=== PATIENT | male | born 1970 | race Caucasian/White ===

== ENCOUNTER 2023-08-23 00:23 | Emergency (ER) | payer SELFPAY ==
[~2023-08-23] VITALS: Ht 160 cm; Wt 72.0 kg
[2023-08-23 00:35] VITALS: O2SAT 100
[2023-08-23 03:02] LABS: BASOPHILS % 0.4 % (0.0-2.0); EOSINOPHILS % 0.1 % (0.0-5.0); HEMATOCRIT. 47.4 % (42.0-52.0); HEMOGLOBIN. 16.3 g/dL (14.0-18.0); LYMPHOCYTES % 9.1 % (20.0-50.0); MEAN CORPUSCULAR HEMOGLOBIN 32.2 pg (28.0-32.0); MEAN CORPUSCULAR HGB CONC 34.4 g/dL (31.0-37.0); MEAN CORPUSCULAR VOLUME 93.6 fL (80.0-94.0); MEAN PLATELET VOLUME 9.8 fl (7.4-10.4); MONOCYTES % 4.2 % (2.0-8.0); NEUTROPHILS % 86.2 % (40.0-76.0); PLATELET 179 x1000/uL (130-400); RED BLOOD CELL COUNT 5.07 mill/uL (4.7-6.1); RED CELL DISTRIBUTION WIDTH 12.7 % (11.6-14.6)
[2023-08-23 03:16] LABS: ALANINE AMINOTRANSFERASE 228 IU/L (10-49); ALBUMIN 4.3 g/dL (3.2-4.8); ASPARTATE AMINOTRANSFERASE 133 IU/L (<34); BILIRUBIN TOTAL 0.9 mg/dL (0.1-1.0); CALCIUM 8.9 mg/dL (8.7-10.4); CARBON DIOXIDE 24 mEq/L (21-32); CHLORIDE 105 mEq/L (98-107); CREATININE 1.2 mg/dL (0.6-1.3); GLUCOSE 191 mg/dL (70-105); POTASSIUM 3.7 mEq/L (3.5-5.1); PROTEIN TOTAL 7.3 g/dL (6.0-8.3); SODIUM 138 mEq/L (136-145); UREA NITROGEN BLOOD 12 mg/dL (9-23)
[2023-08-23 03:17] LABS: LACTIC ACID 2.4 mmol/L (0.4-2.0)
[2023-08-23] MEDS ORDERED: IBUP-2029 MT (05:09)
[2023-08-23] MEDS ORDERED: TAMS-11 MT (05:09)
[2023-08-23] MEDS: KETOROLAC 60MG/2ML VIAL IM STA (05:30)
[2023-08-23] MEDS: ONDANSETRON 4MG ODT PO STA (05:30)
[2023-08-23] MEDS: ONDANSETRON 4MG ODT PO NR (05:42)
[2023-08-23] MEDS: KETOROLAC 60MG/2ML VIAL IM NR (05:42)
[2023-08-23 05:44] VITALS: BP 142/82; PULSE 65; RESP 12; TEMP 97.7
== END 2023-08-23 05:45 | disposition home or self-care (01) ==
LOC: ER 00:23
DX: N20.0 Calculus of kidney (principal); F19.90 Other psychoactive substance use, unspecified, uncomplicated
CPT/HCPCS: 99285; 74176; 80053; 83605; 83690; 85025; 36415; 96372; Q0162; J1885